=== PATIENT | male | born 1950 | race Caucasian/White ===

== ENCOUNTER 2017-03-10 06:19 | Inpatient (IN) | payer OTHER ==
[2017-02-13 11:52] VITALS: BMI 26.0
--- NOTE | 2017-02-13 12:34 | PAT Medication Instructions ---
Service Date Feb 13, 2017. Current Home Medication List Amoxicillin (Amoxil), 2,000 MG PO UD PRN for RN Aspirin (Aspirin Ec), 81 MG PO QAM Medication Instructions For Your Scheduled Surgery - Take the following medications the morning of surgery with a sip of water OTHERWISE NOTHING TO EAT OR DRINK AFTER MIDNIGHT: Aspirin (Aspirin Ec), 81 MG PO QAM If you have any questions please call us at [phone] or [phone] or [phone]
[2017-02-13 14:27] LABS: BUN/CREATININE RATIO 20.1 (10-20); CALCIUM 8.8 mg/dl (8.5-10.1); CREATININE 0.95 mg/dl (0.60-1.40); POTASSIUM 4.4 mmol/L (3.5-5.1)
[2017-02-13 14:29] LABS: URINE APPEARANCE CLEAR (CLEAR); URINE BILIRUBIN NEG (NEG); URINE COLOR YELLOW; URINE EPITHELIAL CELL AUTO 0-5 /lpf (0-5); URINE NITRITE NEG (NEG); URINE SPECIFIC GRAVITY 1.015 (1.000-1.030); UROBILINOGEN NEG (NEG)
[2017-02-13 14:31] LABS: PROTHROMBIN TIME (PATIENT) 10.7 SECONDS (9.0-12.0)
[2017-02-13 14:34] LABS: MANUAL MICROSCOPIC REQUIRED? NO; REVIEW REQ? NO
[2017-02-13 14:46] LABS: BASO % 0.4 %; BASO ABS # 0.03 K/uL (0-0.2); COMPLETE YES; EOS % 2.4 %; HEMATOCRIT 40.4 % (42-52); IG% 0.1 %; LYMPH % 24.2 %; LYMPH ABS # 1.63 K/uL (1.2-3.4); MEAN CELL VOLUME 97.1 fL (80-100); MEAN CORPUSCULAR HEMOGLOBIN 32.5 pg (25-34); MEAN CORPUSCULAR HGB CONC 33.4 g/dl (32-36); MONO % 5.8 %; NEUT % 67.1 %; PLATELET COUNT 174 K/uL (130-400); RED BLOOD COUNT 4.16 M/uL (4.7-6.1); WHITE BLOOD COUNT 6.73 K/uL (4.8-10.8)
--- NOTE | 2017-03-09 16:54 | HISTORY & PHYSICAL EXAMINATION ---
DATE OF ADMISSION: 03/10/2017 CHIEF COMPLAINT: Primary osteoarthritis of the left hip. HISTORY OF PRESENT ILLNESS: Fredi is a very pleasant 66-year-old male, who has been dealing with a greater than 1-year history of left hip pain. X-rays and clinical examination were diagnostic for primary osteoarthritis of the left hip. After failing extensive conservative treatment, he elected to proceed with a left total hip arthroplasty. PAST MEDICAL HISTORY: Significant for heart disease. PAST SURGICAL HISTORY: Significant for heart valve replacement. ALLERGIES: None. MEDICATIONS: Include aspirin 81 mg daily. FAMILY HISTORY: Noncontributory. SOCIAL HISTORY: He is . Never drinks. Remains active. REVIEW OF SYSTEMS: He complains of left hip pain. All other pertinent review of systems is negative. PHYSICAL EXAMINATION: GENERAL: He is awake, alert and oriented x3. He is in no apparent distress. He is very pleasant. HEENT: Pupils are equal, round and reactive to light. Extraocular motions intact. Oral mucosa is pink and moist. HEART: Regular rate per radial pulse. LUNGS: Vivian symmetrically bilaterally with no audible breath sounds. ABDOMEN: Soft, nontender, and nondistended. MUSCULOSKELETAL: On physical examination of the left hip, he can flex about 110 degrees, but very limited on internal and external rotation. He has severe pain with end range of motion. His leg lengths are equal. X-RAYS: Radiographs reviewed from an outside institution show primary osteoarthritis of the left hip. There is joint space narrowing and osteophyte formation. IMPRESSION: Primary osteoarthritis of the left hip. PLAN: We will proceed with a left total hip arthroplasty. He will be started on aspirin 325 mg twice a day postoperatively. He will likely stay in the hospital for 2 midnights for postoperative medical management.
[2017-03-10] VITALS (11 sets, daily range): BP systolic 106–124; BP diastolic 69–90; PULSE 49–77; TEMP 34.2–37; O2SAT 96–100; Ht 188 cm; Wt 94.0 kg
[~2017-03-10] VITALS: Ht 188 cm; Wt 94.0 kg
[~2017-03-10 06:19] MED LIST: ACETAMINOPHEN 500 MG TAB PO SCH; AMOX500C3 PO; ASPI81TA28 PO; CEFAZOLIN 2000 MG/60 ML D5W 60 ML IV SCH; FAMOTIDINE 20 MG TAB PO SCH; GABAPENTIN 300 MG CAP PO SCH; LACTATED RINGER'S 1000ML 1,000 ML IV SCH; LACTATED RINGER'S 1000ML 500 ML IV ONE; LACTATED RINGER'S 1000ML IV SCH; ROPIVACAINE 5MG/ML 30 ML 150 MG, BUPIVACAINE/EPINEPHR 0.5% MPF 30 ML, KETOROLAC TROMETH... INFIL SCH
[2017-03-10] MEDS: TRANEXAMIC ACID INJ 1,000 MG in SODIUM CHLORIDE 0.9% 100ML 100 ML IV SCH ×2 (06:30→09:05)
--- NOTE | 2017-03-10 06:32 | History & Physical Bridge Note ---
H&P Re-Evaluation Bridge Note: I have examined the patient, reviewed the History & Physical and in the interval since the performance of the History & Physical I have noted the following changes of clinical significance: No changes noted
[2017-03-10] MEDS ORDERED: BUPIVACAINE 0.5 % 5 MG/1 ML PF 10ML VIAL ONE (07:28)
[2017-03-10] MEDS ORDERED: FENTANYL CITRATE INJ 50 MCG/1 ML 2 ML VIAL ONE (07:54)
[2017-03-10] MEDS ORDERED: MIDAZOLAM HCL 1 MG/ML 2ML VIAL ONE (07:54)
[2017-03-10] MEDS ORDERED: ORTHO JOINT ANESTHETIC ONE (09:03)
[2017-03-10] MEDS ORDERED: BACITRACIN 50000 UNIT VIAL ONE (09:03)
[2017-03-10] MEDS ORDERED: ONDANSETRON INJ 2 MG/ML 2 ML VIAL IV PRN ×2 (09:30→12:00)
[2017-03-10] MEDS ORDERED: FENTANYL CITRATE INJ 50 MCG/1 ML 2 ML VIAL IV PRN (09:30)
[2017-03-10] MEDS ORDERED: ATROPINE SULFATE 0.1 MG/ML 5ML SYR IV PRN (09:30)
[2017-03-10] MEDS ORDERED: EpHEDrine SULFATE INJ 50 MG/ML AMP IV PRN (09:30)
[2017-03-10] MEDS ORDERED: PROPOFOL IV EMULSION 10 MG/ML 20 ML VIAL IV ONE ×2 (10:04→11:39)
[2017-03-10] MEDS ORDERED: EpHEDrine SULFATE INJ 50 MG/ML AMP ONE (10:28)
--- NOTE | 2017-03-10 11:53 | [facility] Post Operative Brief Note ---
Immediate Operative Summary Operative Date Mar 10, 2017. Pre-Operative Diagnosis Primary Osteoarthritis Left Hip Post-Operative Diagnosis Primary Osteoarthritis Left Hip Procedure(s) Performed Left Anterior Total Hip Arthroplasty, Uncemented, with cable fixation. Surgeon Dr. Osborn Certified Hand Therapist Surgeon(s) PAULIE Vergara Estimated Blood Loss 200ML Findings as above Specimens A. Left Femoral Head Complication(s) None Disposition Recovery Room / PACU
[2017-03-10] MEDS ORDERED: BISACODYL 10 MG SUPP PR PRN (12:00)
[2017-03-10] MEDS ORDERED: MAGNESIUM HYDROXIDE SUSP 30 ML UDC PO PRN (12:00)
[2017-03-10] MEDS ORDERED: SOD PHOSPHATE/SOD BIPHOSPHATE ENEMA 132 ML BTL PR PRN (12:00)
[2017-03-10] MEDS ORDERED: METOCLOPRAMIDE HCL INJ 5 MG/ML 2 ML VIAL IV PRN (12:00)
[2017-03-10] MEDS ORDERED: SILVER SULFADIAZINE 1% CR 50 GM JAR EXT PRN (12:00)
[2017-03-10] MEDS ORDERED: OXYCODONE HCL IR 5 MG TAB (IMMEDIATE RELEASE) PO PRN (12:00)
[2017-03-10] MEDS ORDERED: MoRPHine SULFATE 2 MG/ML CARP IV PRN (12:00)
--- NOTE | 2017-03-10 12:32 | OPERATIVE REPORT ---
DATE OF OPERATION: 03/10/2017 PREOPERATIVE DIAGNOSIS: Primary osteoarthritis of the left hip. POSTOPERATIVE DIAGNOSIS: Same. PROCEDURE: Left total hip arthroplasty. SURGEON: Dr. Bear Osborn. IT DATA ARCHITECT: Isak Solano PA-C, whose assistance was necessary for retraction and closure. ANESTHESIA: Spinal. COMPLICATIONS: A small hairline calcar fracture that was fixed prophylactically with a single cerclage wire. CONDITION: Stable to PACU. IMPLANTS USED: I used a [employer] Taperloc total hip arthroplasty system with a size 20 standard offset stem, a size 40 mm +6 ceramic head, a 54 mm cup, a 20 mm screw and a neutral E-Poly liner as well as a single [place] cerclage wire. INDICATIONS: Fredi is a pleasant 66-year-old male who presented to my office with chronic left hip pain. X-rays and clinical examination were diagnostic for primary osteoarthritis of the left hip. After failing conservative treatment, he elected to undergo a left total hip arthroplasty. OPERATION AND FINDINGS: On 03/10/2017 he arrived at [facility] for the above procedure. He was seen in the preoperative holding area and the operative extremity was identified and signed. He was given a preoperative antibiotic and a spinal anesthetic. He was taken back to the operating room, laid on the table in supine position and put under basic sedation. The left leg was then pulled out to a Purist leg position. The left hip was then prepped and draped in sterile fashion. Time-out was done and the patient and operative extremity was properly identified. An anterior approach was used. Dissection was taken down to the tensor and the fascia was incised. The rectus was retracted medially and the tensor was retracted laterally. The circumflex vessels were ligated and the capsule was easily exposed. The capsule was then incised for later closure. The femoral neck was resected and the head was removed. The acetabulum was then reamed sequentially up to a size 53 reamer. Appropriate version was checked under fluoroscopy. A final 54 mm cup was then impacted into place and a single 20 mm screw was placed. A 40 mm E-Poly liner was then snapped into place. The proximal femur was then exposed. Sequential broaching up to a size 20 broach was done. A +6 neck was trialed, the hip was reduced and fluoroscopy showed anatomic alignment. The hip was then dislocated. The broach was removed. The final 20 Taperloc standard offset implant was then impacted into place. It was fully seated. I tried to do 1 extra tap and there was a small crack in the calcar. The stem was very stable, could not be removed. I put on a +6 ceramic neck. The hip was reduced. Final x-rays showed anatomic alignment of the hip. At this point, I decided to put a single cerclage wire just proximal to the lesser trochanter just to keep the fracture from propagating. A single [employer] cerclage wire was placed around the proximal femur, tightened at 100 pounds and then crimped. Final fluoroscopic images were then taken. The wound was then irrigated. The surrounding soft tissues were injected with 100 mL of an orthopedic pain control cocktail. The joint itself was irrigated with 3 liters of normal saline solution with bacitracin. The fascia was closed with #1 PDS suture. Skin was closed with 2-0 Vicryl, 3-0 V-Loc suture and gareth. He was placed in a soft dressing and taken to the postanesthesia care unit in stable condition. He tolerated the procedure well. I attest to the content of the Intraoperative Record and any orders documented therein. Any exception s are noted below.
--- NOTE | 2017-03-10 12:45 | Anesthesiology Progress Note ---
Anesthesia Post Op Note Date & Time Mar 10, 2017 at 12:45 Vital Signs Pain Intensity: 0 Vital Signs Past 12 Hours Date Time Temp Pulse Resp B/P (MAP) Pulse Ox O2 Delivery O2 Flow Rate FiO2 03/10/17 12:38 58 16 100 03/10/17 12:38 58 16 03/10/17 12:36 97/69 03/10/17 12:33 51 16 03/10/17 12:33 50 16 100 03/10/17 12:32 36.3 03/10/17 12:31 106/72 03/10/17 12:28 57 12 03/10/17 12:28 59 12 100 03/10/17 12:27 55 20 100 03/10/17 12:27 56 20 03/10/17 12:26 105/68 03/10/17 12:22 53 17 100 03/10/17 12:22 51 17 03/10/17 12:21 104/72 03/10/17 12:19 59 16 03/10/17 12:19 56 16 100 03/10/17 12:16 115/71 03/10/17 12:14 70 14 100 03/10/17 12:14 70 14 03/10/17 12:11 104/73 03/10/17 12:09 64 20 100 03/10/17 12:09 65 20 03/10/17 12:06 108/60 03/10/17 12:04 36.2 56 12 111/63 100 Mask 10 03/10/17 12:04 49 15 111/63 100 03/10/17 12:04 50 15 03/10/17 07:19 36.8 77 18 124/90 99 Room Air Notes Mental Status: alert / awake / arousable, participated in evaluation Pt Amnestic to Procedure: Yes Nausea / Vomiting: adequately controlled Pain: adequately controlled Airway Patency, RR, SpO2: stable & adequate BP & HR: stable & adequate Hydration State: stable & adequate Neuraxial Anesthesia: was administered, sensory block is resolving Anesthetic Complications: no major complications apparent
--- NOTE | 2017-03-10 12:48 | DIAGNOSTIC IMAGING REPORT ---
LEFT PELVIS/UNILATERAL HIP 1 VIEW CLINICAL HISTORY: Postoperative evaluation. COMPARISON: Left hip radiographs December 22, 2016. FINDINGS: Alignment of the total left hip arthroplasty is anatomic. A cerclage wire is noted. Acetabular screw is in place. There are skin gareth. There is no fracture or unexpected radiopaque foreign body. IMPRESSION: Expected findings following total left hip arthroplasty. Electronically signed by: John Aguirre M.D. 03/10/2017 12:47 PM Dictated Date/Time: 03/10/2017 12:46 PM
[2017-03-10] MEDS: SODIUM CHLORIDE 0.9% 1000ML 1,000 ML IV SCH (13:15)
--- NOTE | 2017-03-10 15:32 | DIAGNOSTIC IMAGING REPORT ---
LEFT HIP UNILATERAL 1 VIEW CLINICAL HISTORY: LEFT ANTERIOR HIP. Left hip prosthesis. COMPARISON STUDY: Left hip 12/22/2016. FINDINGS: Total fluoroscopy time is 45 seconds. 4 intraoperative fluoroscopic spot images submitted. There is evidence for placement of a left total hip arthroplasty. The hardware appears intact. No fracture or dislocation identified. IMPRESSION: Fluoroscopy provided for left total hip arthroplasty. Electronically signed by: Donald Jaquez M.D. 03/10/2017 3:31 PM Dictated Date/Time: 03/10/2017 3:30 PM
[2017-03-10] MEDS: KETOROLAC TROMETHAMINE 15 MG/ML VIAL IV. SCH ×2 (16:02→21:11)
[2017-03-10] MEDS: ACETAMINOPHEN IV 1,000 MG in EMPTY BAG 0 ML IV SCH (16:02)
[2017-03-10] MEDS: CEFAZOLIN IV 2,000 MG in DEXTROSE 5% 50ML 50 ML IV SCH (17:56)
[2017-03-10] MEDS: ASPIRIN 325 MG ECTAB PO SCH (21:09)
[2017-03-10] MEDS: DOCUSATE SODIUM 100 MG CAP PO SCH (21:09)
[2017-03-10] MEDS: SENNA 8.6 MG TAB PO SCH (21:10)
[2017-03-11] VITALS (7 sets, daily range): BP systolic 96–109; BP diastolic 62–70; PULSE 69–88; TEMP 36.7–37.6; O2SAT 94–98
[2017-03-11] MEDS: SODIUM CHLORIDE 0.9% 1000ML 1,000 ML IV SCH ×2 (00:02→11:06)
[2017-03-11] MEDS: ACETAMINOPHEN IV 1,000 MG in EMPTY BAG 0 ML IV SCH ×2 (00:04→08:17)
[2017-03-11] MEDS: CEFAZOLIN IV 2,000 MG in DEXTROSE 5% 50ML 50 ML IV SCH (01:46)
[2017-03-11] MEDS: KETOROLAC TROMETHAMINE 15 MG/ML VIAL IV. SCH ×4 (03:47→21:56)
[2017-03-11 07:47] LABS: BASO % 0.2 %; BASO ABS # 0.02 K/uL (0-0.2); COMPLETE YES; EOS % 1.6 %; HEMATOCRIT 33.7 % (42-52); IG% 0.4 %; LYMPH % 13.5 %; LYMPH ABS # 1.51 K/uL (1.2-3.4); MEAN CELL VOLUME 96.3 fL (80-100); MEAN CORPUSCULAR HEMOGLOBIN 32.6 pg (25-34); MEAN CORPUSCULAR HGB CONC 33.8 g/dl (32-36); MEAN PLATELET VOLUME 9.7 fL (7.4-10.4); MONO % 9.6 %; NEUT % 74.7 %; PLATELET COUNT 118 K/uL (130-400); WHITE BLOOD COUNT 11.15 K/uL (4.8-10.8)
[2017-03-11 08:25] LABS: POTASSIUM 4.5 mmol/L (3.5-5.1)
[2017-03-11] MEDS: MULTIVITAMIN TAB PO SCH (08:43)
[2017-03-11] MEDS: PANTOprazole SOD 40 MG TAB PO SCH (08:43)
[2017-03-11] MEDS: DOCUSATE SODIUM 100 MG CAP PO SCH ×2 (08:43→20:58)
[2017-03-11] MEDS: ASPIRIN 325 MG ECTAB PO SCH ×2 (08:43→20:58)
--- NOTE | 2017-03-11 11:19 | PROGRESS NOTE ---
DATE: 03/11/2017 DATE: 03/11/2017 CHIEF COMPLAINT: Status post left total hip arthroplasty postop day #1. PROGRESS: Fredi was seen and examined at bedside today. Overall, he is doing very well. He says he has already been up and taking laps around the nursing station. He says he has no pain in his hip and has no complaints. PHYSICAL EXAMINATION: LEFT HIP: The dressing is clean and dry. There was no drain. His leg lengths are equal. He is neurovascularly intact. LABORATORY DATA: He has an H&H today of 11.4 and 33.7. His glucose is 115. VITAL SIGNS: All stable on room air. He is voiding on his own. X-rays postoperatively of the left hip show the prosthesis to be in anatomic alignment. Leg lengths are equal. There is a cerclage wire around the proximal femur. There was an incomplete calcar fracture that was observed intraoperatively. It was stable and fixed with a cerclage wire. IMPRESSION: Status post left total hip arthroplasty postop day #1. PLAN: I did discuss the stable calcar fracture and the cerclage wire with him and his at bedside. They understand. I am not going to change his weightbearing status or his postoperative course. He can be weightbearing as tolerated. He is on aspirin 325 mg twice a day for DVT prophylaxis. He can continue to work with physical therapy. Tomorrow he will have his dressing changed and I will discharge him to home with home health. [place]
[2017-03-11] MEDS: SENNA 8.6 MG TAB PO SCH (21:52)
[2017-03-11] MEDS: ACETAMINOPHEN 500 MG TAB PO SCH (22:41)
[2017-03-12] MEDS: KETOROLAC TROMETHAMINE 15 MG/ML VIAL IV. SCH ×2 (04:26→09:27)
[2017-03-12] MEDS: ACETAMINOPHEN 500 MG TAB PO SCH (05:39)
[2017-03-12 07:26] VITALS: BP 120/75; PULSE 90; TEMP 36.4; O2SAT 97
[2017-03-12] MEDS ORDERED: CYCL10TA6 PO (07:27)
[2017-03-12] MEDS ORDERED: ASPEC325 PO (07:27)
[2017-03-12] MEDS ORDERED: RXC5 PO (07:27)
--- NOTE | 2017-03-12 07:29 | Discharge Instructions ---
Discharge Instructions Date of Service Mar 12, 2017. Admission Reason for Admission: Left Hip Osteoarthritis Discharge Discharge Diagnosis / Problem: Left Total Hip Discharge Goals Goal(s): Decrease discomfort, Improve function Activity Recommendations Activity Limitations: as noted below . Instructions / Follow-Up Instructions / Follow-Up Activity and Therapy Recommendations: * If you are using [facility] then Physical Therapy will be provided until they feel you are ready to start Outpatient Physical Therapy. If you are not using a Home Health agency then Outpatient Physical Therapy should start about 3-5 days from your day of surgery. Therapy will last about 3-6 weeks * You were shown a series of exercises in the hospital. Do these exercises three times each day including the exercises you were shown in physical therapy. * Get up and walk several times each day.~ For the first four weeks, try not to stand or walk for more than one hour at a time. If you do stand or walk for more than one hour, you will not hurt anything, but your leg will likely swell.~ ~ * As you feel comfortable, you may change from the walker or crutches to a cane and~then to independent walking. Medications: * Narcotic You will likely be sent home from the hospital with a prescription for the narcotic pain medication that worked best throughout your stay. * Aspirin Most patients will be required to take Aspirin 325mg twice a day for 6 weeks after surgery. This is obtained [id number] and a prescription is not necessary. * Other medications may be prescribed for specific circumstances. If you have any questions, please call the office at . * Resume previous home medications unless otherwise instructed TEDs/Elastic Stockings: The white elastic stockings help limit swelling and prevent blood clots from forming in your legs. The more you wear them, the more they work. Wear them for six weeks. Showering: You may shower 5 days from the day of surgery. Let the soapy shower water run over the gareth. Do not scrub or soak the incision. Things To Watch For: * Drainage from the incision site that occurs more than one week after your surgery. * Increased redness at the incision site. * Fever above 102 degrees Fahrenheit. * Unusual chest pain or shortness of breath. * Call [facility] at with any of the above problems Follow-Up Visit: Follow-up with Dr. Osborn 2-3 weeks after your day of surgery. An appointment was probably scheduled when you signed-up for surgery in the office. If you have any questions call Office Instructions: More detailed instructions as well as Frequently Asked Questions were provided in a folder by our office when you signed-up for surgery. Please review these instructions when you get home. If you have any further questions or concerns, please feel free to call the office at [phone] Current Hospital Diet Patient's current hospital diet: Regular Diet Discharge Diet Recommended Diet: Regular Diet Procedures Procedures Performed: Left Anterior Total Hip Arthroplasty, Uncemented, with cable fixation. Pending Studies Studies pending at discharge: no Laboratory Results Hemoglobin A1c Test 12/29/16 15:37 Range/Units Estimated Average Glucose 117 mg/dl Hemoglobin A1c 5.7 H 4.5-5.6 % Medical Emergencies . Who to Call and When: Medical Emergencies: If at any time you feel your situation is an emergency, please call 911 immediately. . Non-Emergent Contact Non-Emergency issues call your: Surgeon Call Non-Emergent contact if: wound has increased drainage, wound has increased redness . "Provider Documentation" section prepared by Bear Osborn. . VTE Core Measure Inpt VTE Proph given/why not?: Other Anticoagulation (Aspirin 325 twice a day for 6 weeks)
[2017-03-12] MEDS: MULTIVITAMIN TAB PO SCH (08:31)
[2017-03-12] MEDS: PANTOprazole SOD 40 MG TAB PO SCH (08:32)
[2017-03-12 08:54] VITALS: BP 120/75; PULSE 90; TEMP 36.4; O2SAT 97
[2017-03-12] MEDS: DOCUSATE SODIUM 100 MG CAP PO SCH (09:09)
[2017-03-12] MEDS: ASPIRIN 325 MG ECTAB PO SCH (09:09)
--- NOTE | 2017-03-12 22:11 | DISCHARGE SUMMARY ---
SUBJECTIVE: Status post left total hip arthroplasty postop day #2. Fredi was seen and examined at bedside today. Overall, he is doing very well. He says he really has no pain in the left hip. He has been working well with physical therapy and has no complaints. PHYSICAL EXAMINATION: LEFT HIP: He is lying with his hip flexed to about 20 degrees. The dressing has been changed and his incision looks good. He is neurovascularly intact and his leg lengths are equal. IMPRESSION: Status post left total hip arthroplasty postop day #2. PLAN: At this point, he is doing very well and happy with his progress. He will be seen by physical therapy again this morning and will likely discharge him to home with [facility] home health.
--- NOTE | 2017-03-12 22:15 | DISCHARGE SUMMARY ---
DISCHARGE DIAGNOSIS: Primary osteoarthritis of the left hip. PROCEDURE: Left total hip arthroplasty on 03/10/[address] Bear Osborn. DISCHARGE INSTRUCTIONS: 1. Aspirin 325 mg twice a day. 2. Flexeril 10 mg as needed for muscle spasms. 3. Oxycodone 5 mg every 4 hours as needed for pain. 4. Daily dry dressing changes. 5. Follow up with Dr. Osborn in 2 weeks. 6. Call the office of Dr. Osborn with any questions or concerns. HOSPITAL COURSE: Fredi is a pleasant 66-year-old male who presented to my office with chronic left hip pain. X-rays and clinical examination were diagnostic for primary osteoarthritis of the left hip. After failing extensive conservative treatment, he elected to undergo a left total hip arthroplasty. On 03/10/2017, he arrived at [facility] and underwent a left hip replacement without complications. He had a spinal anesthetic. Postoperatively, he was discharged to general orthopedic floors and started on aspirin 325 mg twice a day. His hospital course was uneventful. On postop day #1, his H&H was stable at 11.4 and 33.7. He was able to work very well with physical therapy and his pain was controlled. On postop day #2, he continued to do well, the dressing was changed and he was seen again by physical therapy. He was having very little pain and he was subsequently discharged to home on oral pain medications, [facility] health and the above instructions.
== END 2017-03-12 10:08 | disposition home health service (06) | DRG 470 ==
LOC: C.ACU 06:19 → C.3E 11:57 → ENRESERV 12:41
PROVIDERS: ADMIT Orthopaedic Surgery; ATTEND Orthopaedic Surgery
PROC: 0QH704Z Insertion of Internal Fixation Device into Left Upper Femur, Open Approach (ICD-10-PCS; principal; 2017-03-10 09:20)
PROC: 0SRB04A Replacement of Left Hip Joint with Ceramic on Polyethylene Synthetic Substitute, Uncemented, Open Approach (ICD-10-PCS; principal; 2017-03-10 09:20)
DX: M16.12 Unilateral primary osteoarthritis, left hip (principal); M96.662 Fracture of femur following insertion of orthopedic implant, joint prosthesis, or bone plate, left leg; Q23.1 Congenital insufficiency of aortic valve; Z79.82 Long term (current) use of aspirin; Z95.2 Presence of prosthetic heart valve; Y83.4 Other reconstructive surgery as the cause of abnormal reaction of the patient, or of later complication, without mention of misadventure at the time of the procedure; Y79.2 Prosthetic and other implants, materials and accessory orthopedic devices associated with adverse incidents; Y92.234 Operating room of hospital as the place of occurrence of the external cause